=== PATIENT | male | born 1965 | race Native Hawaiian/Other Pacific Islander ===

== ENCOUNTER 2017-07-31 09:52 | Observation (INO) | payer OTHER ==
[2017-07-31 10:02] LABS: Glucose,Whole Blood 102 mg/dL (75-99)
[2017-07-31] MEDS ORDERED: SODIUM CHLORIDE 0.9% 1,000 ML IV STA (10:20)
[2017-07-31] MEDS ORDERED: MECLIZINE 12.5 MG TAB PO STA (10:21)
[2017-07-31] MEDS ORDERED: METOCLOPRAMIDE 5 MG/ML 2 ML VIAL IVP STA (10:21)
--- NOTE | 2017-07-31 10:24 | ED ---
General Adult HPI - General Chief complaint: Dizziness Stated complaint: DIZZINESS X 3 DAYS Time Seen by Provider: 07/31/17 10:15 Source: patient, RN notes reviewed Mode of arrival: ambulatory Limitations: no limitations - History of Present Illness Initial comments: Patient is a pleasant 51-year-old male presenting to the emergency Department with concerns for dizziness. Onset of symptoms was 2 days ago. Patient had a couple of episodes of diarrhea and vomiting. Patient did drink some extra fluids. Those symptoms have resolved. Patient has had dizziness since that time that has been intermittent. Patient has some constant lightheadedness however at times feels he is spinning. Symptoms worsen with upright position and head movements. No history of similar symptoms previously. No confusion, no speech problems, no weakness. No paresthesias. - Related Data Home Medications Medication Instructions Recorded Confirmed Lisinopril [Zestril] 20 mg PO PC-LUNCH 07/31/17 07/31/17 Allergies Allergy/AdvReac Type Severity Reaction Status Date / Time No Known Allergies Allergy Verified 07/31/17 09:57 Review of Systems ROS Statement: Those systems with pertinent positive or pertinent negative responses have been documented in the HPI. ROS Other: All systems not noted in ROS Statement are negative. Constitutional: Denies: fever Eyes: Denies: eye pain ENT: Denies: ear pain Respiratory: Denies: cough Cardiovascular: Denies: chest pain Endocrine: Denies: fatigue Gastrointestinal: Denies: abdominal pain Genitourinary: Denies: dysuria Musculoskeletal: Denies: back pain Skin: Denies: rash Neurological: Reports: vertigo. Denies: headache, weakness Past Medical History Past Medical History: Hypertension History of Any Multi-Drug Resistant Organisms: None Reported Additional Past Surgical History / Comment(s): plastic surgery on face Past Psychological History: No Psychological Hx Reported Smoking Status: Never smoker Past Alcohol Use History: None Reported Past Drug Use History: None Reported General Exam Limitations: no limitations General appearance: alert, in no apparent distress Head exam: Present: atraumatic Eye exam: Present: normal appearance, PERRL, EOMI, nystagmus ENT exam: Present: normal oropharynx Respiratory exam: Present: normal lung sounds bilaterally Cardiovascular Exam: Present: regular rate, normal rhythm GI/Abdominal exam: Present: soft. Absent: tenderness Extremities exam: Present: normal inspection Neurological exam: Present: alert, oriented X3, CN II-XII intact. Absent: motor sensory deficit Expanded Speech: Present: fluid speech Cranial nerves: EOM's Intact: Normal, Facial Sensation: Normal Cerebellar function: Finger to Nose: Normal Sensory exam: Upper Extremity Light Touch: Normal, Lower Extremity Light Touch: Normal Motor strength exam: RUE: 5, LUE: 5, RLE: 5, LLE: 5 Eye Response: (4) open spontaneously Motor Response: (6) obeys commands Verbal Response: (5) oriented Psychiatric exam: Present: normal affect, normal mood Skin exam: Present: normal color Course Vital Signs 07/31/17 07/31/17 09:53 11:53 Temperature 97.9 F Pulse Rate 82 86 Respiratory 18 18 Rate Blood Pressure 146/97 130/80 O2 Sat by Pulse 99 98 Oximetry EKG Findings - EKG Comments: EKG Findings:: Normal sinus rhythm 77. IN 152. QRS 94. QT 364. QTC 411. Normal axis. Normal QRS. No acute ST change. Medical Decision Making - Medical Decision Making patient was reevaluated and resting comfortably in bed. Patient states mild improvement. Patient also adds that he has been using a cane to help with balance issues. Secondary to balance problems as well as horizontal and some mild vertical nystagmus patient will be admitted for further evaluation. Case discussed in detail with Dr. Pritchett, who will admit for Dr. Collins. - Lab Data Result diagrams: 07/31/17 10:37 07/31/17 10:37 Lab Results 07/31/17 07/31/17 07/31/17 Range/Units 10:01 10:37 10:37 WBC 7.0 (3.8-10.6) k/uL RBC 4.41 (4.30-5.90) m/uL Hgb 13.3 (13.0-17.5) gm/dL Hct 40.2 (39.0-53.0) % MCV 91.0 (80.0-100.0) fL MCH 30.1 (25.0-35.0) pg MCHC 33.1 (31.0-37.0) g/dL RDW 12.4 (11.5-15.5) % Plt Count 303 (150-450) k/uL Neutrophils % 56 % Lymphocytes % 33 % Monocytes % 7 % Eosinophils % 2 % Basophils % 0 % Neutrophils # 3.9 (1.3-7.7) k/uL Lymphocytes # 2.3 (1.0-4.8) k/uL Monocytes # 0.5 (0-1.0) k/uL Eosinophils # 0.1 (0-0.7) k/uL Basophils # 0.0 (0-0.2) k/uL PT (9.0-12.0) sec INR (<1.2) APTT (22.0-30.0) sec Sodium 141 (137-145) mmol/L Potassium 4.1 (3.5-5.1) mmol/L Chloride 105 (98-107) mmol/L Carbon Dioxide 26 (22-30) mmol/L Anion Gap 10 mmol/L BUN 12 (9-20) mg/dL Creatinine 0.87 (0.66-1.25) mg/dL Est GFR (MDRD) Af Amer >60 (>60 ml/min/1.73 sqM) Est GFR (MDRD) Non-Af >60 (>60 ml/min/1.73 sqM) Glucose 94 (74-99) mg/dL POC Glucose (mg/dL) 102 H (75-99) mg/dL POC Glu Lead Coater ID Jyoti Bello Calcium 9.6 (8.4-10.2) mg/dL Total Bilirubin 0.3 (0.2-1.3) mg/dL AST 48 (17-59) U/L ALT 73 H (21-72) U/L Alkaline Phosphatase 67 (38-126) U/L Total Protein 8.0 (6.3-8.2) g/dL Albumin 4.5 (3.5-5.0) g/dL 07/31/17 Range/Units 10:37 WBC (3.8-10.6) k/uL RBC (4.30-5.90) m/uL Hgb (13.0-17.5) gm/dL Hct (39.0-53.0) % MCV (80.0-100.0) fL MCH (25.0-35.0) pg MCHC (31.0-37.0) g/dL RDW (11.5-15.5) % Plt Count (150-450) k/uL Neutrophils % % Lymphocytes % % Monocytes % % Eosinophils % % Basophils % % Neutrophils # (1.3-7.7) k/uL Lymphocytes # (1.0-4.8) k/uL Monocytes # (0-1.0) k/uL Eosinophils # (0-0.7) k/uL Basophils # (0-0.2) k/uL PT 10.3 (9.0-12.0) sec INR 1.0 (<1.2) APTT 24.8 (22.0-30.0) sec Sodium (137-145) mmol/L Potassium (3.5-5.1) mmol/L Chloride (98-107) mmol/L Carbon Dioxide (22-30) mmol/L Anion Gap mmol/L BUN (9-20) mg/dL Creatinine (0.66-1.25) mg/dL Est GFR (MDRD) Af Amer (>60 ml/min/1.73 sqM) Est GFR (MDRD) Non-Af (>60 ml/min/1.73 sqM) Glucose (74-99) mg/dL POC Glucose (mg/dL) (75-99) mg/dL POC Glu Lead Coater ID Calcium (8.4-10.2) mg/dL Total Bilirubin (0.2-1.3) mg/dL AST (17-59) U/L ALT (21-72) U/L Alkaline Phosphatase (38-126) U/L Total Protein (6.3-8.2) g/dL Albumin (3.5-5.0) g/dL - Radiology Data Radiology results: image reviewed (Chest x-ray shows no acute process. Computed tomography scan of the brain shows no acute intercranial hemorrhage. Mild diffuse cerebral atrophy.) Disposition Clinical Impression: Dizziness, Gait disturbance Disposition: ADMITTED IP TO THIS HOSP Referrals: Alicja Epstein MD [Primary Care Provider] - 1-2 days Decision Time: 12:05
[2017-07-31 10:58] LABS: Basophils % (A) 0 %; CH 29.9; CHCM 32.9; Eosinophils # (A) 0.1 k/uL (0-0.7); Eosinophils % (A) 2 %; HCT 40.2 % (39.0-53.0); HDW 2.36; HGB 13.3 gm/dL (13.0-17.5); Luc # (Auto) 0.15; Luc % (Auto) 2; Lymphocytes # (A) 2.3 k/uL (1.0-4.8); Lymphocytes % (A) 33 %; MCH 30.1 pg (25.0-35.0); MCHC 33.1 g/dL (31.0-37.0); Mean Platelet Volume 7.1; Monocytes # (A) 0.5 k/uL (0-1.0); Monocytes % (A) 7 %; Neutrophils # (A) 3.9 k/uL (1.3-7.7); Neutrophils % (A) 56 %; RBC 4.41 m/uL (4.30-5.90); RDW 12.4 % (11.5-15.5); WBC (Perox) 6.59
[2017-07-31 11:02] LABS: Partial Thromboplastin Time 24.8 sec (22.0-30.0); Prothrombin Time 10.3 sec (9.0-12.0)
--- NOTE | 2017-07-31 11:03 | CT ---
EXAMINATION TYPE: CT brain wo con DATE OF EXAM: 07/31/2017 COMPARISON: NONE HISTORY: dizziness. CT DLP: 981.7 mGycm. Automated Exposure Control for Dose Reduction was Utilized. TECHNIQUE: CT scan of the head is performed without contrast. FINDINGS: There is no acute intracranial hemorrhage, mass effect, or midline shift identified. Ther e is mild ventricular and sulcal prominence. The globes are intact and the visualized sinuses are cl ear. No suspicious opacification of mastoid air cells is seen. IMPRESSION: No acute intracranial hemorrhage or midline shift is seen. There is mild diffuse cerebra l atrophy noted.
--- NOTE | 2017-07-31 11:09 | XR ---
EXAMINATION TYPE: XR chest 2V DATE OF EXAM: 07/31/2017 COMPARISON: NONE HISTORY: Dizziness and weakness. TECHNIQUE: Frontal and lateral views of the chest are obtained. FINDINGS: There is no focal air space opacity, pleural effusion, or pneumothorax seen. The cardiac silhouette size is within normal limits. The osseous structures are intact. IMPRESSION: No acute cardiopulmonary process.
[2017-07-31 11:12] LABS: ALT 73 U/L (21-72); AST 48 U/L (17-59); Alkaline Phosphatase 67 U/L (38-126); Anion Gap 10 mmol/L; Blood Urea Nitrogen 12 mg/dL (9-20); Calcium 9.6 mg/dL (8.4-10.2); Carbon Dioxide 26 mmol/L (22-30); Chloride 105 mmol/L (98-107); Glucose 94 mg/dL (74-99); Non-African American GFR(MDRD) >60 (>60 ml/min/1.73 sqM); Potassium 4.1 mmol/L (3.5-5.1); Sodium 141 mmol/L (137-145); Total Bilirubin 0.3 mg/dL (0.2-1.3)
[2017-07-31] MEDS ORDERED: NALOXONE 0.4 MG/ML 1 ML VIAL IV PRN (12:06)
[2017-07-31] MEDS ORDERED: MECLIZINE 25 MG TAB PO PRN (12:07)
[2017-07-31] MEDS ORDERED: METOCLOPRAMIDE 5 MG/ML 2 ML VIAL IVP PRN (12:07)
--- NOTE | 2017-07-31 14:25 | MR ---
EXAMINATION TYPE: MR brain wo/w con DATE OF EXAM: 07/31/2017 COMPARISON: CT brain from earlier today. HISTORY: Dizziness, balance problems TECHNIQUE: Multiplanar, multisequence images of the brain and brainstem is performed without and with IV contras t, utilizing 7.5 mL intravenous Gadavist . FINDINGS: Diffusion weighted images demonstrate no evidence of a recent infarct or other diffusion ab normality. There is no extra-axial fluid collection or significant white matter signal abnormality. The ventricular system and cisternal spaces are normal in size and appearance. The brain volume is age appropriate. Midline structures demonstrate normal morphology. The craniocervical junction appears within normal limits. Post contrast images demonstrate no abnormal enhancement. The dural venous sinuses appear pa tent. There is mild to moderate mucosal thickening in the left maxillary sinus. Remainder paranasal s inuses are clear. The globes are intact bilaterally. No suspicious fluid signal is seen in mastoid ai r cells bilaterally. IMPRESSION: No evidence of a recent infarct. No suspicious finding is seen to account for patient's s ymptoms.
[2017-07-31] MEDS ORDERED: LISINOPRIL 20 MG TAB PO SCH (15:45)
--- NOTE | 2017-07-31 15:45 | P.HPIM ---
History of Present Illness H&P Date: 07/31/17 Chief Complaint: Dizziness Patient is a pleasant 51-year-old male with a known history of hypertension came to ER with complaints of dizziness for the past 2 days. patient says that he felt some head spinning with nausea on Monday and on Monday he woke up with lightheaded. patient felt more dizzy today and which made him come to the hospital. Patient denied any chest pain or short of breath. No headache. No diarrhea no vomiting. Patient has some constant lightheadedness and dizziness however at times feels he is spinning. Symptoms worsen with upright position and head movements. No history of similar symptoms previously. No confusion, no speech problems, no weakness. No paresthesias. chest x-ray showed no acute process next and EKG showed normal sinus rhythm MRI of the head showed no recent CVA. Laboratory data within normal limits except slightly elevated ALT at 78 Review of Systems Constitutional: Patient denies any fever or chills . No generalized weakness or weight loss. Abdomen: Patient denied nausea vomiting and diarrhea and abdominal pain. Cardiovascular: Patient denies any chest pain or short of breath no palpitations. Respiratory: patient denied any cough is from production. No shortness of breath Neurologic: Patient denied any numbness or tingling headache.dizziness and lightheadedness and room spinning Musculoskeletal: Patient denies any complaints of joint swelling or deformity. Skin: Negative Psychiatric: Negative Endocrine: No heat or cold intolerance. No recent weight gain. Genitourinary: No dysuria or hematuria. All other 14 point ROS negative except the above Past Medical History Past Medical History: Hypertension History of Any Multi-Drug Resistant Organisms: None Reported Additional Past Surgical History / Comment(s): Plastic surgery on face due to injury. Past Anesthesia/Blood Transfusion Reactions: No Reported Reaction Smoking Status: Never smoker - Past Family History Father Family Medical History: Myocardial Infarction ([place]) Additional Family Medical History / Comment(s): Father had MIs and of one in his early 70s. Mother Family Medical History: Myocardial Infarction ([place]) Additional Family Medical History / Comment(s): Mother of a [place] in her late 70s. Medications and Allergies Home Medications Medication Instructions Recorded Confirmed Type Lisinopril [Zestril] 20 mg PO PC-LUNCH 07/31/17 07/31/17 History Allergies Allergy/AdvReac Type Severity Reaction Status Date / Time No Known Allergies Allergy Verified 07/31/17 09:57 Physical Exam Vitals: Vital Signs Temp Pulse Pulse Resp BP BP Pulse Ox 07/31/17 14:25 98.2 F 84 18 149/83 100 07/31/17 13:00 98.0 F 72 18 133/82 98 07/31/17 11:53 86 18 130/80 98 07/31/17 09:53 97.9 F 82 18 146/97 99 Intake and Output 07/31/17 07/31/17 07/31/17 06:59 14:59 22:59 Other: Weight 70.307 kg Patient Weight 08/01/17 06:59 Weight 70.307 kg PHYSICAL EXAMINATION: Patient is lying in the bed comfortably, no acute distress, awake alert and oriented.. HEENT: Normocephalic. Neck is supple. Pupils reactive. Nostrils clear. Oral cavity is moist. Ears reveal no drainage. Neck reveals no JVD, carotid bruits, or thyromegaly. CHEST EXAMINATION: Trachea is central. Symmetrical expansion. Lung giang clear to auscultation and percussion. CARDIAC: Normal S1, S2 with no gallops. No murmurs ABDOMEN: Soft. Bowel sounds normal. No organomegaly. No abdominal bruits. Extremities: reveal no edema. No clubbing or cyanosis Neurologically awake, alert, oriented x3 with well-coordinated movements. No focal deficits noted Skin: No rash or skin lesions. Psychiatric: Operative. Nonsuicidal Musculoskeletal: No joint swelling or deformity. Normal range of motion. Results CBC & Chem 7: 07/31/17 10:37 07/31/17 10:37 Labs: Abnormal Lab Results - Last 24 Hours (Table) 07/31/17 07/31/17 Range/Units 10:01 10:37 POC Glucose (mg/dL) 102 H (75-99) mg/dL ALT 73 H (21-72) U/L Thrombosis Risk Factor Assmnt - Choose All That Apply Any of the Below Risk Factors Present?: Yes Each Factor Represents 1 point: Age 41-60 years Other Risk Factors: No Other congenital or acquired thrombophilia - If yes, enter type in comment: No Thrombosis Risk Factor Assessment Total Risk Factor Score: 1 Thrombosis Risk Factor Assessment Level: Low Risk Assessment and Plan Assessment: 1 dizziness lightheadedness and room spinning likely due to benign paroxysmal positional vertigo. Worsens with head movement. #2 hypertension Plan: Patient be continued on telemetry monitoring. EKG showed sinus rhythm. Will check orthostatic vitals. Continue with meclizine and somatic management for nausea. Will follow closely and continue with home blood pressure medication and further recommendations based on the clinical course. Neurology was consulted. Patient had workup done including CT head chest x-ray EKG and MRI of the brain.
[2017-07-31] MEDS: SODIUM CHLORIDE 0.9% 1,000 ML IV SCH (15:53)
[2017-07-31] MEDS ORDERED: ACETAMINOPHEN TAB 325 MG TAB PO PRN (19:10)
--- NOTE | 2017-07-31 19:21 | P.CNNES ---
History of Present Illness Consult date: 07/31/17 Requesting physician: Eric Pritchett Reason for Consult: Dizziness Chief complaint: Dizziness History of Present Illness: The patient is a pleasant 51-year-old male who is being evaluated by the neurology service per the request of Dr. Pritchett for dizziness. The patient states that he woke up Monday and felt that "he is getting ill". He was complaining of dizziness, nausea, and vomiting. He did stay in bed all day Monday. Today, his symptoms worsened and he was brought into [facility] emergency room for further management. A computed tomography scan of the brain was done which showed mild atrophy. An MRI of the brain was done which showed no abnormalities. His CBC and comprehensive metabolic profile were normal except for slightly elevated ALT at 73. The patient was started on Reglan and Antivert as needed and was admitted for further workup and management. At the time of my evaluation, he is laying in his bed then appears to be in no acute distress. He is still complaining of some dizziness when he stands up. His nausea has improved with Reglan. The patient is complaining of some oral pain. He reports that he was recently diagnosed with an oral abscess/ dental abscess. He denies any fevers. Review of Systems All systems: negative Constitutional: Denies chills, Denies fever Eyes: denies blurred vision, denies pain Ears, nose, mouth and throat: Reports mouth pain, Reports vertigo, Denies headache, Denies sore throat Cardiovascular: Denies chest pain, Denies shortness of breath Respiratory: Denies cough Gastrointestinal: Reports nausea, Reports vomiting, Denies abdominal pain, Denies diarrhea Musculoskeletal: Denies myalgias Integumentary: Denies pruritus, Denies rash Neurological: Reports vertigo, Denies numbness, Denies weakness Psychiatric: Denies anxiety, Denies depression Endocrine: Denies fatigue, Denies weight change Past Medical History Past Medical History: Hypertension History of Any Multi-Drug Resistant Organisms: None Reported Additional Past Surgical History / Comment(s): Plastic surgery on face due to injury. Past Anesthesia/Blood Transfusion Reactions: No Reported Reaction Smoking Status: Never smoker - Past Family History Father Family Medical History: Myocardial Infarction ([place]) Additional Family Medical History / Comment(s): Father had MIs and of one in his early 70s. Mother Family Medical History: Myocardial Infarction ([place]) Additional Family Medical History / Comment(s): Mother of a [place] in her late 70s. Medications and Allergies Home Medications Medication Instructions Recorded Confirmed Type Lisinopril [Zestril] 20 mg PO PC-LUNCH 07/31/17 07/31/17 History Allergies Allergy/AdvReac Type Severity Reaction Status Date / Time No Known Allergies Allergy Verified 07/31/17 09:57 Physical Examination - Vital Signs Vital Signs: Vital Signs Temp Pulse Pulse Resp BP BP BP 07/31/17 16:44 92 07/31/17 16:43 84 150/96 07/31/17 16:00 98.1 F 80 18 133/78 07/31/17 14:25 98.2 F 84 18 149/83 07/31/17 13:00 98.0 F 72 18 133/82 07/31/17 11:53 86 18 130/80 07/31/17 09:53 97.9 F 82 18 146/97 BP BP Pulse Ox 07/31/17 16:44 177/99 100 07/31/17 16:43 129/73 98 07/31/17 16:00 99 07/31/17 14:25 100 07/31/17 13:00 98 07/31/17 11:53 98 07/31/17 09:53 99 Intake and Output 07/31/17 07/31/17 07/31/17 06:59 14:59 22:59 Other: Voiding Method Toilet Weight 70.307 kg Patient Weight 08/01/17 06:59 Weight 70.307 kg - Constitutional General appearance: average body habitus, no acute distress - EENT EENT: ATNC, PERRL, hearing intact, vision intact - Cardiovascular Cardiovascular: regular rate Extremities: no peripheral edema bilaterally - Gastrointestinal Gastrointestinal: soft, non-tender - Integumentary Integumentary: normal - Neurologic The patient is alert aware and oriented 3. Speech and language are normal. Strength is full in all 4 extremities. No pronator drift is seen. Sensory exam was normal to light touch in all 4 extremities. Cranial nerves II through XII were grossly intact. No tremors or seizure-like activity is seen. - Psychiatric Psychiatric: mood/affect appropriate, cooperative Results - Laboratory Findings CBC and BMP: 07/31/17 10:37 07/31/17 10:37 Abnormal Lab Findings: Abnormal Labs 07/31/17 07/31/17 10:01 10:37 POC Glucose (mg/dL) 102 H ALT 73 H - Diagnostic Findings Comments: All labs were reviewed. Computed tomography scan of the brain and MRI of the brain were reviewed. Assessment and Plan (1) Oral pain Current Visit: Yes Status: Acute Code(s): K13.79 - OTHER LESIONS OF ORAL MUCOSA SNOMED Code(s): 052176669 (2) Dizziness Current Visit: Yes Status: Acute Code(s): R42 - DIZZINESS AND GIDDINESS SNOMED Code(s): 285541552 (3) Gait disturbance Current Visit: Yes Status: Acute Code(s): R26.9 - UNSPECIFIED ABNORMALITIES OF GAIT AND MOBILITY SNOMED Code(s): 36092717 Plan: The patient continues to have some vertigo and nausea. His nausea has improved with Reglan. He is currently receiving Antivert only as needed. I will change this to Antivert 25 mg 4 times a day around the clock. I reviewed with him the results of his computed tomography scan of the brain and MRI of the brain, both of which showed no abnormalities. He was reassured from that standpoint. His vertigo appears to be peripheral in etiology. Continue Reglan as needed. As for his oral pain, I will give him Tylenol 650 mg when necessary. Continue monitoring his liver enzymes due to his slightly elevated ALT. An EEG has been ordered. I will continue to follow with you. Further recommendations to follow. Thank you for allowing to participate in the care of your patient. If you have any questions, please for free to contact me. Time with Patient: Greater than 30
[2017-07-31] MEDS: MECLIZINE 25 MG TAB PO SCH (19:55)
[2017-08-01 00:30] VITALS: RESP 18
[2017-08-01] MEDS: MECLIZINE 25 MG TAB PO SCH (08:35)
[2017-08-01 11:46] VITALS: BP 139/80; PULSE 75; TEMP 97.7
[2017-08-01] MEDS: SODIUM CHLORIDE 0.9% 1,000 ML IV SCH (12:57)
--- NOTE | 2017-08-01 14:20 | P.DS ---
Providers Date of admission: 07/31/17 13:00 Expected date of discharge: 08/01/17 Attending physician: Eric Pritchett Consults: 07/31/17 12:06 Consult Physician Urgent Consulting Provider: Amanuel Holder Consult Reason/Comments: Dizziness and gait disturbance Do you want consulting provider notified?: Yes Primary care physician: Lucian Helm [facility] Course: Patient left AMA Plan - Discharge Summary Discharge Rx Participant: No New Discharge Prescriptions: No Action Lisinopril [Zestril] 20 mg PO PC-LUNCH Discharge Medication List Lisinopril [Zestril] 20 mg PO PC-LUNCH 07/31/17 [History] Follow up Appointment(s)/Referral(s): Alicja Epstein MD [Primary Care Provider] - 1-2 days Discharge Disposition: Left Against Medical Advice
--- NOTE | 2017-08-01 19:07 | EEG ---
ELECTROENCEPHALOGRAM REPORT DATE OF SERVICE: 08/01/2017 REASON FOR TESTING: Dizziness. DESCRIPTION OF THE PROCEDURE: This EEG was performed using a 21 channel digital electroencephalograph, following international 10-20 system. DESCRIPTION OF THE RECORDING: From the beginning of the tracing, and with patient's eyes closed, the background rhythm was mostly consisting of 9 Hz alpha frequency in the posterior occipital leads. No obvious asymmetry is seen. Photic stimulation was performed with a good driving response seen. No pathological waves were elicited. Hyperventilation was not performed. Occasional movement and muscle artifacts are seen. The patient remains awake throughout the tracing. No epileptiform discharges were seen. His EKG lead showed a regular rate and rhythm. INTERPRETATION: This awake EEG can be considered within normal limits. There was no asymmetry seen. No epileptiform discharges were noticed. The absence of epileptiform discharges does not rule out the diagnosis of epilepsy, therefore clinical correlation is recommended. JACKIE / CAROLYNN: [id number] /
== END 2017-08-01 12:53 | disposition left against medical advice (07) ==
LOC: EC 09:52 → 3OBS 13:00
PROVIDERS: ADMIT Internal Medicine; ATTEND Internal Medicine
DX: R42 Dizziness and giddiness (principal); R26.9 Unspecified abnormalities of gait and mobility; I10 Essential (primary) hypertension; R74.0 Nonspecific elevation of levels of transaminase and lactic acid dehydrogenase [LDH]; K08.89 Other specified disorders of teeth and supporting structures; R11.2 Nausea with vomiting, unspecified; Z79.899 Other long term (current) drug therapy
CPT/HCPCS: 96361 ×2; 96374 ×2; 99285 ×2; 36415; 95816; 93005; 80053; 85025; 85610; 85730; 71020; 70450; 70553; G0378 ×2; J2765; A9581